=== PATIENT | male | born 1970 | race Caucasian/White ===

== ENCOUNTER 2020-05-25 12:45 | Inpatient (IN) | payer BC ==
[~2020-05-25] VITALS: Ht 177.8 cm; Wt 92.1 kg
[2020-05-25] MEDS ORDERED: IV NORMAL SALINE 500 ML BAG IV ONE (13:00)
[2020-05-25 13:50] LABS: CREATININE 0.8 mg/dL (0.6-1.3); POTASSIUM 3.7 mmol/L (3.5-5.1)
[2020-05-25 14:03] LABS: BILIRUBIN,DIRECT 0.2 mg/dL (0.0-0.2); BILIRUBIN,TOTAL 0.9 mg/dL (0.2-1.0); TOTAL PROTEIN, SERUM 7.4 g/dL (6.4-8.2)
[2020-05-25 14:10] LABS: HEMATOCRIT 47.6 % (36.7-47.1); HEMOGLOBIN 16.4 g/dL (12.5-16.3); LYMPHOCYTES # (AUTO) 0.2 K/uL (20.0-40.0); LYMPHOCYTES % (AUTO) 2.1 % (20.5-51.5); MEAN CORPUSCULAR HGB CONC 35 g/dL (32.5-36.3); MONOCYTES # (AUTO) 0.5 K/uL (2.0-10.0); MONOCYTES % (AUTO) 5.3 % (0.0-11.0); NEUTROPHILS # (AUTO) 8.4 K/uL (1.8-8.9); NEUTROPHILS % (AUTO) 92.6 % (38.5-71.5); PLATELET COUNT (AUTO) 169 K/uL (152-348); RED BLOOD CELL COUNT(AUTO) 5.29 MIL/uL (4.06-5.63)
[2020-05-25] MEDS ORDERED: DEXAMETHASONE SOD PHOSPHATE 4 MG INJ IV ONE (15:00)
[2020-05-25] MEDS ORDERED: DEXAMETHASONE SOD PHOSPHATE 4 MG INJ ONE (15:18)
--- NOTE | 2020-05-25 19:00 | NUR ---
hospital dinner tray at bedside. pt remained calm and comfortable the whole shift. pt was on 4 litre o2 via nc, improving the sat to 97%.
--- NOTE | 2020-05-25 19:20 | NUR ---
Received patient in shift report from Lucia REHMAN
[2020-05-25] MEDS ORDERED: HYDROMORPHONE 1 MG/1 ML DISP.SYRIN IV ONE (19:45)
[2020-05-25] MEDS ORDERED: MORPHINE SULFATE 2 MG/1 ML DISP.SYRIN IV PRN (21:15)
[2020-05-25] MEDS ORDERED: ONDANSETRON 4 MG/2 ML VIAL IV PRN (21:15)
[2020-05-25] MEDS ORDERED: CEFTRIAXONE 1 G in IV DEXTROSE 5% 50 ML IV SCH (21:15)
[2020-05-25] MEDS ORDERED: AZITHROMYCIN IV 500 MG in IV DEXTROSE 5% 250 ML IV SCH (21:15)
[2020-05-25] MEDS ORDERED: ACETAMINOPHEN 325 MG TABLET PO PRN (21:15)
[2020-05-25] MEDS ORDERED: ALBUTEROL SULFATE 8 GM HFA.AER.AD IH PRN (21:30)
--- NOTE | 2020-05-25 22:24 | NUR ---
patient noted resting in bed, no signs of acute distress noted at this time
--- NOTE | 2020-05-26 00:53 | NUR ---
no changes noted, report given to Derrick REHMAN on [employer]
--- NOTE | 2020-05-26 01:18 | NUR ---
Pt. admitted to [facility] , under care of Dr. Aguialr Belongs List completed and all belongings sent with patient, no signs acute distress
--- NOTE | 2020-05-26 01:18 | NUR ---
Patient received from Leanna REHMAN. Safety measures in place. Will monitor and assess.
[2020-05-26 01:31] VITALS: BP 120/79
--- NOTE | 2020-05-26 02:00 | NUR ---
Patient complained of SOB and stated that it is difficult for him to breath from his nose, rendering the Nasal Canula useless. Patient was put on Simple Facemask at 8Ls. Saturation of 98%. Will monitor and assess.
[2020-05-26] MEDS ORDERED: AZITHROMYCIN 500MG/ D5W 250ML IVPB **ER PYXIS ONLY IV ONE (02:12)
[2020-05-26] MEDS ORDERED: CEFTRIAXONE /D5W 50ML IVPB **ER PYXIS IV ONE (02:12)
[2020-05-26 04:48] VITALS: BP 114/93
[2020-05-26] MEDS: PANTOPRAZOLE SODIUM 40 MG TABLET.DR PO SCH (05:51)
--- NOTE | 2020-05-26 06:41 | NUR ---
Patient handed to AM nurse at shift change. VSS. Stable condition. No distress. Will endorse all information to AM nurse.
[2020-05-26 06:58] LABS: HEMOGLOBIN 14.9 g/dL (12.5-16.3); LYMPHOCYTES # (AUTO) 0.5 K/uL (20.0-40.0); LYMPHOCYTES % (AUTO) 5.6 % (20.5-51.5); MEAN CORPUSCULAR HEMOGLOBIN 31.2 uug (23.8-33.4); MEAN CORPUSCULAR HGB CONC 35 g/dL (32.5-36.3); MEAN CORPUSCULAR VOLUME 89.9 fL (73.0-96.2); MONOCYTES # (AUTO) 0.5 K/uL (2.0-10.0); MONOCYTES % (AUTO) 5.6 % (0.0-11.0); NEUTROPHILS # (AUTO) 8.1 K/uL (1.8-8.9); NEUTROPHILS % (AUTO) 88.8 % (38.5-71.5); PLATELET COUNT (AUTO) 179 K/uL (152-348); RED BLOOD CELL COUNT(AUTO) 4.78 MIL/uL (4.06-5.63); WHITE BLOOD COUNT (AUTO) 9.2 K/uL (3.6-10.2)
[2020-05-26 07:50] LABS: BILIRUBIN,TOTAL 0.4 mg/dL (0.2-1.0); CREATININE 0.8 mg/dL (0.6-1.3); MAGNESIUM 2.4 mg/dL (1.8-2.4); PHOSPHOROUS 3.1 mg/dL (2.5-4.9); POTASSIUM 3.6 mmol/L (3.5-5.1); TOTAL PROTEIN, SERUM 6.5 g/dL (6.4-8.2)
[2020-05-26] MEDS: ENOXAPARIN SODIUM 40 MG/0.4 ML DISP.SYRIN SQ SCH (10:37)
[2020-05-26 12:00] VITALS: BP 128/83
[2020-05-26] MEDS ORDERED: REMDESIVIR (CHARGED) 200 MG in IV NORMAL SALINE 210 ML IV ONE (13:30)
[2020-05-26] MEDS: DEXAMETHASONE 4 MG TABLET PO SCH (15:36)
[2020-05-26 16:00] VITALS: BP 135/89
--- NOTE | 2020-05-26 18:23 | NUR ---
Received patient AOx4, with Midline on her Left Arm , patient on Droplet Isolation for being positive with Covid 19, patient oxygen facemask 8 LPM, on sinus rhythm , patient denies SOB, no distress, patient tolerated remdesivir, no sign of distress at this time
[2020-05-26] MEDS: DOCUSATE SODIUM 100 MG CAPSULE PO SCH (21:43)
[2020-05-27] VITALS (8 sets, daily range): BP systolic 116–129; BP diastolic 58–91
[2020-05-27] MEDS: AZITHROMYCIN IV 500 MG in IV DEXTROSE 5% 250 ML IV SCH (00:21)
[2020-05-27] MEDS: CEFTRIAXONE 1 G in IV DEXTROSE 5% 50 ML IV SCH (01:43)
--- NOTE | 2020-05-27 03:01 | NUR ---
Patient alert x4 with oxygen mask at 8LPM saturating at 98 %.HOB elevated.No s/s of distress noted.Denies pain .Iv on right wrist 20 g patent and intact.IV ATB given as ordered .No a/R noted.Continue on droplet isolation.Safety measures in place.
[2020-05-27] MEDS: PANTOPRAZOLE SODIUM 40 MG TABLET.DR PO SCH (06:16)
[2020-05-27 08:07] LABS: BASOPHILS % (AUTO) 0.3 % (0.0-2.0); HEMATOCRIT 44.2 % (36.7-47.1); HEMOGLOBIN 15.5 g/dL (12.5-16.3); LYMPHOCYTES # (AUTO) 0.4 K/uL (20.0-40.0); LYMPHOCYTES % (AUTO) 5.7 % (20.5-51.5); MEAN CORPUSCULAR HEMOGLOBIN 31.2 uug (23.8-33.4); MEAN CORPUSCULAR HGB CONC 35 g/dL (32.5-36.3); MEAN CORPUSCULAR VOLUME 89.1 fL (73.0-96.2); MONOCYTES # (AUTO) 0.5 K/uL (2.0-10.0); NEUTROPHILS # (AUTO) 6.1 K/uL (1.8-8.9); PLATELET COUNT (AUTO) 195 K/uL (152-348); RED BLOOD CELL COUNT(AUTO) 4.96 MIL/uL (4.06-5.63)
[2020-05-27 08:19] LABS: BILIRUBIN,DIRECT 0.2 mg/dL (0.0-0.2); BILIRUBIN,TOTAL 0.4 mg/dL (0.2-1.0); CREATININE 0.7 mg/dL (0.6-1.3); MAGNESIUM 2.4 mg/dL (1.8-2.4); PHOSPHOROUS 3.5 mg/dL (2.5-4.9); POTASSIUM 3.8 mmol/L (3.5-5.1); TOTAL PROTEIN, SERUM 6.4 g/dL (6.4-8.2)
[2020-05-27] MEDS: ENOXAPARIN SODIUM 40 MG/0.4 ML DISP.SYRIN SQ SCH (10:00)
[2020-05-27 12:00] LABS: ABG BASE EXCESS 0.9 mmol/L; ABG HCO3 24.6 mmol/L; ABG PCO2 36.4 mmHg (35.0-45.0); ABG PH 7.447 (7.350-7.450); ABG PO2 81.6 mmHg (75.0-100.0); ABG SITE RIGHT RADIAL; ABG TOTAL HEMOGLOBIN 15.6 G/dL (13.5-18.0); COHb 0.8 % (0.5-1.5); MetHb 0.2 % (0.0-1.5); O2Hb 95.9 % (94.0-97.0)
[2020-05-27] MEDS ORDERED: DEXTROSE 50% 50 ML DISP.SYRIN IV PRN (12:45)
[2020-05-27] MEDS: REMDESIVIR (CHARGED) 100 MG in IV NORMAL SALINE 230 ML IV SCH (14:15)
[2020-05-27] MEDS: DEXAMETHASONE 4 MG TABLET PO SCH (17:12)
[2020-05-27] MEDS: BLOOD SUGAR DIAGNOSTIC 1 EACH STRIP VI SCH ×2 (17:46→20:58)
[2020-05-27] MEDS: DOCUSATE SODIUM 100 MG CAPSULE PO SCH (20:58)
[2020-05-27] MEDS: INSULIN REGULAR, HUMAN 300 UNITS/3 ML VIAL SQ PRN (21:01)
[2020-05-28] VITALS (9 sets, daily range): BP systolic 117–129; BP diastolic 58–90
[2020-05-28] MEDS: AZITHROMYCIN IV 500 MG in IV DEXTROSE 5% 250 ML IV SCH (00:05)
[2020-05-28] MEDS: CEFTRIAXONE 1 G in IV DEXTROSE 5% 50 ML IV SCH (02:14)
--- NOTE | 2020-05-28 05:14 | NUR ---
PATIENT IS IN BED, ALERT AND VERBALLY RESPONSIVE. ON 8L/MIN OF O2 VIA MASK. IN NO RESPIRATORY DISTRESS. WITH EPISODES OF PRODUCTIVE COUGH. SPUTUM COLLECTED AND SENT TO LAB PER MD ORDER. NO COMPLAINTS OF PAIN. RECEIVED ALL DUE MEDICATIONS. ALL NEEDS ATTENDED.
[2020-05-28 06:18] LABS: BASOPHILS % (AUTO) 0.7 % (0.0-2.0); HEMOGLOBIN 14.7 g/dL (12.5-16.3); LYMPHOCYTES # (AUTO) 0.4 K/uL (20.0-40.0); LYMPHOCYTES % (AUTO) 6.3 % (20.5-51.5); MEAN CORPUSCULAR HEMOGLOBIN 31.6 uug (23.8-33.4); MEAN CORPUSCULAR HGB CONC 35 g/dL (32.5-36.3); MEAN CORPUSCULAR VOLUME 89.9 fL (73.0-96.2); MONOCYTES # (AUTO) 0.5 K/uL (2.0-10.0); NEUTROPHILS # (AUTO) 5.4 K/uL (1.8-8.9); PLATELET COUNT (AUTO) 231 K/uL (152-348); RED BLOOD CELL COUNT(AUTO) 4.67 MIL/uL (4.06-5.63); WHITE BLOOD COUNT (AUTO) 6.4 K/uL (3.6-10.2)
[2020-05-28 06:36] LABS: BILIRUBIN,DIRECT 0.1 mg/dL (0.0-0.2); BILIRUBIN,TOTAL 0.4 mg/dL (0.2-1.0); CREATININE 0.8 mg/dL (0.6-1.3); MAGNESIUM 2.3 mg/dL (1.8-2.4); PHOSPHOROUS 4.1 mg/dL (2.5-4.9); POTASSIUM 3.8 mmol/L (3.5-5.1)
[2020-05-28] MEDS: BLOOD SUGAR DIAGNOSTIC 1 EACH STRIP VI SCH ×4 (06:56→21:03)
[2020-05-28] MEDS: PANTOPRAZOLE SODIUM 40 MG TABLET.DR PO SCH (06:56)
[2020-05-28] MEDS: ENOXAPARIN SODIUM 40 MG/0.4 ML DISP.SYRIN SQ SCH (09:53)
[2020-05-28] MEDS: INSULIN REGULAR, HUMAN 300 UNIT/3 ML VIAL SQ PRN (12:29)
[2020-05-28] MEDS: REMDESIVIR (CHARGED) 100 MG in IV NORMAL SALINE 230 ML IV SCH (14:26)
[2020-05-28] MEDS: DEXAMETHASONE 4 MG TABLET PO SCH (15:39)
--- NOTE | 2020-05-28 19:30 | NUR ---
Received pt in bed. Awake. Denies any acute distress or CP. V/S stable on 8L, tolerating well. NSR on tele monitor. PIV on RW20G is intact. Pt is on isolation precaution, COVID+. Safety measures in place. Call light within reach. Will continue with the plan of care.
--- NOTE | 2020-05-28 19:57 | NUR ---
Patient stable throughout shift. On 8L mask, denied SOB at this time. Tolerated Remdesivir. Not in acute distress
[2020-05-28] MEDS: DOCUSATE SODIUM 100 MG CAPSULE PO SCH (20:51)
[2020-05-28] MEDS: INSULIN REGULAR, HUMAN 300 UNITS/3 ML VIAL SQ PRN (21:13)
[2020-05-29 00:18] VITALS: BP 132/93
[2020-05-29] MEDS: AZITHROMYCIN IV 500 MG in IV DEXTROSE 5% 250 ML IV SCH (01:05)
[2020-05-29] MEDS: CEFTRIAXONE 1 G in IV DEXTROSE 5% 50 ML IV SCH (02:47)
[2020-05-29 04:50] VITALS: BP 124/88
[2020-05-29] MEDS: PANTOPRAZOLE SODIUM 40 MG TABLET.DR PO SCH (06:53)
[2020-05-29] MEDS: BLOOD SUGAR DIAGNOSTIC 1 EACH STRIP VI SCH ×4 (07:01→21:02)
[2020-05-29] MEDS: ENOXAPARIN SODIUM 40 MG/0.4 ML DISP.SYRIN SQ SCH (09:17)
[2020-05-29 10:27] LABS: BASOPHILS % (AUTO) 0.2 % (0.0-2.0); EOSINOPHILS % (AUTO) 0.1 % (0.0-7.0); HEMOGLOBIN 15.1 g/dL (12.5-16.3); LYMPHOCYTES # (AUTO) 0.5 K/uL (20.0-40.0); LYMPHOCYTES % (AUTO) 8.3 % (20.5-51.5); MEAN CORPUSCULAR HEMOGLOBIN 31.5 uug (23.8-33.4); MEAN CORPUSCULAR HGB CONC 35 g/dL (32.5-36.3); MEAN CORPUSCULAR VOLUME 89.7 fL (73.0-96.2); MONOCYTES # (AUTO) 0.4 K/uL (2.0-10.0); MONOCYTES % (AUTO) 6.4 % (0.0-11.0); NEUTROPHILS # (AUTO) 5.3 K/uL (1.8-8.9); PLATELET COUNT (AUTO) 234 K/uL (152-348); WHITE BLOOD COUNT (AUTO) 6.3 K/uL (3.6-10.2)
[2020-05-29 10:36] LABS: BILIRUBIN,DIRECT 0.1 mg/dL (0.0-0.2); BILIRUBIN,TOTAL 0.4 mg/dL (0.2-1.0); CREATININE 0.9 mg/dL (0.6-1.3); MAGNESIUM 2.1 mg/dL (1.8-2.4); PHOSPHOROUS 3.2 mg/dL (2.5-4.9); POTASSIUM 3.4 mmol/L (3.5-5.1)
[2020-05-29] MEDS ORDERED: POTASSIUM CHLORIDE 20 MEQ TAB.PRT.SR PO ONE (11:45)
[2020-05-29] MEDS: INSULIN REGULAR, HUMAN 300 UNIT/3 ML VIAL SQ PRN (12:08)
[2020-05-29 12:10] VITALS: BP 125/78
--- NOTE | 2020-05-29 12:16 | NUR ---
Pt stable throughout the shift. Denies any CP or SOB. On 8L Simple face mask, tolerating well. Comfort care and needs attended. Isolation precaution maintained. Safety measures in place. Will endorse to oncoming nurse accordingly.
--- NOTE | 2020-05-29 12:30 | NUR ---
Received comfortable, not in distress. O2 decreased to 6L/mask with O2 sat of 97%
[2020-05-29] MEDS: REMDESIVIR (CHARGED) 100 MG in IV NORMAL SALINE 230 ML IV SCH (14:33)
[2020-05-29 15:00] VITALS: BP 128/86
[2020-05-29] MEDS: DEXAMETHASONE 4 MG TABLET PO SCH (15:08)
--- NOTE | 2020-05-29 15:40 | NUR ---
Remdesivir dose given. Vital signs stable. O2 sat 97% with 6L/mask, decreased to 4L
[2020-05-29 16:07] VITALS: BP 122/87
--- NOTE | 2020-05-29 18:00 | NUR ---
O2 decreased to 2L/NC with O2 sat of 96%. no shortness of breath noted.
[2020-05-29 20:51] VITALS: BP 126/87
[2020-05-29] MEDS: DOCUSATE SODIUM 100 MG CAPSULE PO SCH (21:00)
[2020-05-29] MEDS ORDERED: AZITHROMYCIN 500 MG VIAL IV ONE (23:27)
[2020-05-30] MEDS: AZITHROMYCIN IV 500 MG in IV DEXTROSE 5% 250 ML IV SCH (00:20)
--- NOTE | 2020-05-30 01:00 | NUR ---
O2 DECREASED TO 1L/MIN VIA NC. TOLERATED WELL. PATIENT SATURATING AT 97%. NO RESPIRATORY DISTRESS OBSERVED. STILL WITH EPISODES OF COUGHING. RECEIVED DUE MEDICATIONS, TOLERATED WELL. ALL NEEDS ATTENDED.
[2020-05-30 01:01] VITALS: BP 115/82
[2020-05-30] MEDS: CEFTRIAXONE 1 G in IV DEXTROSE 5% 50 ML IV SCH (02:08)
[2020-05-30 05:26] VITALS: BP 116/78
[2020-05-30] MEDS: PANTOPRAZOLE SODIUM 40 MG TABLET.DR PO SCH (06:07)
[2020-05-30] MEDS: BLOOD SUGAR DIAGNOSTIC 1 EACH STRIP VI SCH ×4 (07:30→21:26)
[2020-05-30 08:40] LABS: BASOPHILS % (AUTO) 0.1 % (0.0-2.0); EOSINOPHILS # (AUTO) 0.2 K/uL (0.0-0.7); EOSINOPHILS % (AUTO) 2.6 % (0.0-7.0); HEMATOCRIT 43.9 % (36.7-47.1); HEMOGLOBIN 15.5 g/dL (12.5-16.3); LYMPHOCYTES # (AUTO) 0.6 K/uL (20.0-40.0); LYMPHOCYTES % (AUTO) 10.2 % (20.5-51.5); MEAN CORPUSCULAR HEMOGLOBIN 31.4 uug (23.8-33.4); MEAN CORPUSCULAR HGB CONC 35 g/dL (32.5-36.3); MEAN CORPUSCULAR VOLUME 88.9 fL (73.0-96.2); MONOCYTES # (AUTO) 0.4 K/uL (2.0-10.0); MONOCYTES % (AUTO) 7.4 % (0.0-11.0); NEUTROPHILS # (AUTO) 4.6 K/uL (1.8-8.9); NEUTROPHILS % (AUTO) 79.7 % (38.5-71.5); PLATELET COUNT (AUTO) 271 K/uL (152-348); RED BLOOD CELL COUNT(AUTO) 4.94 MIL/uL (4.06-5.63); WHITE BLOOD COUNT (AUTO) 5.8 K/uL (3.6-10.2)
[2020-05-30 08:47] LABS: BILIRUBIN,DIRECT 0.2 mg/dL (0.0-0.2); BILIRUBIN,TOTAL 0.5 mg/dL (0.2-1.0); CREATININE 0.8 mg/dL (0.6-1.3); POTASSIUM 3.8 mmol/L (3.5-5.1)
[2020-05-30 11:35] VITALS: BP 115/79
[2020-05-30] MEDS: ENOXAPARIN SODIUM 40 MG/0.4 ML DISP.SYRIN SQ SCH (12:18)
[2020-05-30] MEDS: REMDESIVIR (CHARGED) 100 MG in IV NORMAL SALINE 230 ML IV SCH (14:03)
[2020-05-30] MEDS: DEXAMETHASONE 4 MG TABLET PO SCH (14:04)
[2020-05-30 16:15] VITALS: BP 110/75
--- NOTE | 2020-05-30 19:30 | NUR ---
Pt in bed, awake. Denies any acute distress or pain at this time. V/S stable on 1L NC, tolerating well. NSR 75 on tele monitor. Safety measures in place. Call light within reach. Will continue with the plan of care.
[2020-05-30 20:17] VITALS: BP 125/87
[2020-05-30] MEDS: DOCUSATE SODIUM 100 MG CAPSULE PO SCH (20:56)
[2020-05-30] MEDS: INSULIN REGULAR, HUMAN 300 UNITS/3 ML VIAL SQ PRN (21:34)
[2020-05-31 00:28] VITALS: BP 107/77
[2020-05-31] MEDS: CEFTRIAXONE 1 G in IV DEXTROSE 5% 50 ML IV SCH (01:22)
[2020-05-31 04:40] VITALS: BP 109/78
[2020-05-31] MEDS: PANTOPRAZOLE SODIUM 40 MG TABLET.DR PO SCH (06:26)
[2020-05-31] MEDS: BLOOD SUGAR DIAGNOSTIC 1 EACH STRIP VI SCH ×4 (06:41→21:14)
--- NOTE | 2020-05-31 06:48 | NUR ---
PT SLEPT THROUGH THE NIGHT. V/S STABLE THROUGHOUT THE SHIFT. DENIES ANY ACUTE DISTRESS/SOB/CP. ON 1L NC. NSR ON TELE MONITOR. COMFORT CARE AND NEEDS ATTENDED.SAFETY MEASURES IN PLACE. ISOLATION PRECAUTION MAINTAINED. WILL ENDORSE TO ONCOMING NURSE ACCORDINGLY.
[2020-05-31 08:14] VITALS: BP 116/81
[2020-05-31] MEDS: ENOXAPARIN SODIUM 40 MG/0.4 ML DISP.SYRIN SQ SCH (08:33)
[2020-05-31] MEDS: INSULIN REGULAR, HUMAN 300 UNIT/3 ML VIAL SQ PRN (12:07)
[2020-05-31 12:27] VITALS: BP 107/74
[2020-05-31] MEDS: DEXAMETHASONE 4 MG TABLET PO SCH (14:26)
--- NOTE | 2020-05-31 15:10 | NUR ---
02 TAPERED DOWN TO R/A PT SATURATING 96%. No c/o sob and pt denies any c/o pain.
[2020-05-31 16:27] VITALS: BP 125/68
--- NOTE | 2020-05-31 19:45 | NUR ---
PATIENT ALERT ORIENTED, NO SOB NO CHEST PAIN. PATIENT TELE MONITOR SINUS RHYTHM AT THIS TIME. PATIENT AFEBRILE, REMAINS ON DROPLET PRECAUTION, CONT TO MONITOR. PATIENT NO DESATURATION ON ROOM AIR.
[2020-05-31] MEDS: DOCUSATE SODIUM 100 MG CAPSULE PO SCH (21:00)
[2020-05-31] MEDS: INSULIN REGULAR, HUMAN 300 UNITS/3 ML VIAL SQ PRN (21:15)
[2020-05-31 21:21] VITALS: BP 115/79
[2020-06-01 01:06] VITALS: BP 115/75
[2020-06-01] MEDS: CEFTRIAXONE 1 G in IV DEXTROSE 5% 50 ML IV SCH (02:15)
[2020-06-01 06:03] VITALS: BP 114/79
[2020-06-01] MEDS: PANTOPRAZOLE SODIUM 40 MG TABLET.DR PO SCH (06:26)
[2020-06-01] MEDS: BLOOD SUGAR DIAGNOSTIC 1 EACH STRIP VI SCH ×2 (06:27→12:26)
[2020-06-01] MEDS: ENOXAPARIN SODIUM 40 MG/0.4 ML DISP.SYRIN SQ SCH (08:42)
[2020-06-01 09:34] LABS: CREATININE 0.9 mg/dL (0.6-1.3); MAGNESIUM 2.2 mg/dL (1.8-2.4); POTASSIUM 3.9 mmol/L (3.5-5.1)
[2020-06-01 09:50] LABS: BASOPHILS % (AUTO) 0.2 % (0.0-2.0); EOSINOPHILS % (AUTO) 0.1 % (0.0-7.0); HEMATOCRIT 46.2 % (36.7-47.1); HEMOGLOBIN 15.6 g/dL (12.5-16.3); LYMPHOCYTES # (AUTO) 0.8 K/uL (20.0-40.0); LYMPHOCYTES % (AUTO) 10.3 % (20.5-51.5); MEAN CORPUSCULAR HEMOGLOBIN 30.7 uug (23.8-33.4); MEAN CORPUSCULAR HGB CONC 34 g/dL (32.5-36.3); MEAN CORPUSCULAR VOLUME 90.9 fL (73.0-96.2); MONOCYTES # (AUTO) 0.5 K/uL (2.0-10.0); MONOCYTES % (AUTO) 6.3 % (0.0-11.0); NEUTROPHILS # (AUTO) 6.6 K/uL (1.8-8.9); NEUTROPHILS % (AUTO) 83.1 % (38.5-71.5); PLATELET COUNT (AUTO) 301 K/uL (152-348); RED BLOOD CELL COUNT(AUTO) 5.09 MIL/uL (4.06-5.63); WHITE BLOOD COUNT (AUTO) 7.9 K/uL (3.6-10.2)
[2020-06-01] MEDS ORDERED: DEXA4TAB2 PO (11:47)
[2020-06-01 12:00] VITALS: BP 107/61
[2020-06-01] MEDS: DEXAMETHASONE 4 MG TABLET PO SCH (13:42)
--- NOTE | 2020-06-01 14:16 | NUR ---
With discharge order to home. Saline lock removed. Prescription and Covid 19 DC instruction given to patient, verbalized understanding. 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
[2020-06-01 15:00] VITALS: BP 123/95
--- NOTE | 2020-06-01 15:00 | NUR ---
Discharge instructions given to patient. PT verbalized understanding. IV d/c . Pt is in no acute distress upon distress.
== END 2020-06-01 15:00 | disposition home or self-care (01) | DRG 177 ==
LOC: ER 12:45 → TELE3 05-26 00:11 → MEDSURG3 06-01 09:30
PROVIDERS: ADMIT Student in an Organized Health Care Education/Training Program; ATTEND Nurse Practitioner Acute Care
PROC: XW033E5 Introduction of Remdesivir Anti-infective into Peripheral Vein, Percutaneous Approach, New Technology Group 5 (ICD-10-PCS; principal; 2020-05-26)
DX: U07.1 COVID-19 (principal); J12.89 Other viral pneumonia; J96.01 Acute respiratory failure with hypoxia; E44.0 Moderate protein-calorie malnutrition; E87.1 Hypo-osmolality and hyponatremia; Z87.891 Personal history of nicotine dependence; E87.6 Hypokalemia; R73.03 Prediabetes; Z68.29 Body mass index [BMI] 29.0-29.9, adult
CPT/HCPCS: 36415; 36600; 70030-TC; 71045; 83615; 83735; 84100; 85025; 85610; 85730; 86140; 87070; 93005; A4663; G0378; J0456; J0696; J1100; J1650; J1815; J3535; J7030; J7050; J7060; J8540